=== PATIENT | male | born 1985 | race Caucasian/White ===

== ENCOUNTER 2019-01-07 21:51 | Inpatient (IN) | payer OTHER ==
[2019-01-07 21:58] VITALS: BMI 23.5
[2019-01-07] MEDS ORDERED: CYCLOBENZAPRINE HCL 10 MG TABLET (FP) PO ONE (22:24)
[2019-01-07] MEDS ORDERED: KETOROLAC TROMETHAMINE 60 MG/2 ML VIAL IM ONE (22:24)
[2019-01-07] MEDS ORDERED: predniSONE 20 MG TABLET (UD) PO ONE (22:25)
--- NOTE | 2019-01-07 23:21 | PDOC ---
Documentation entered by Shen Flowers SCRIBE, acting as scribe for Paul Oropeza MD. Paul Oropeza MD: This documentation has been prepared by the Lionel burdick Daniel, SCRIBE, under my direction and personally reviewed by me in its entirety. I confirm that the documentation accurately reflects all work , treatment, procedures, and medical decision making performed by me. History of Present Illness - General Chief Complaint: Pain, Acute Stated Complaint: L LEG PAIN Time Seen by Provider: 01/07/19 21:54 History Source: Patient Exam Limitations: No Limitations - History of Present Illness Initial Comments: 01/07/19 23:17 This is a 33-year-old male who comes in complaining of jumping off a wall and experiencing a pop in his left leg. Patient is complaining that he broke the left leg. Patient has history significant for a ACL repair in that same leg as well as a femur fracture in the past. Patient otherwise says he is healthy denies any medications and any medical history. Allergies: as per nursing notes Past Medical History: none Social history: Lives with family. Surgical history: ACL repair and femur fracture General: No fevers or chills, no weakness, no weight loss HEENT: No change in vision. No sore throat,. No ear pain CardioVascular: no chest discomfort. No shortness of breath Respiratory:No cough, or wheezing. Gastrointestinal: no nausea, vomiting, diarrhea or constipation, No rectal bleeding Genitourinary: No dysuria, hematuria, or frequency Musculoskeletal: Left leg pain and swelling as per history of present illness Neurologic: No headache, vertigo, dizziness or loss of consciousness Psychiatric: nor depression Skin: No rashes or easy bruising Endocrine: no increased thirst or abnormal weight change Allergic: no skin or latex allergy All other systems reviewed and normal Exam: General: Well-nourished well-developed individual, no acute distress HEENT: Throat: Normal, tonsils normal, no erythema or exudate Neck: Supple, no meningeal signs, no lymphadenopathy Eyes::Pupils equal reactive and round, extraocular motion intact Chest: Nontender to palpation Cardiac: S1-S2 normal, regular rate and rhythm, no murmurs rubs or gallops Respiratory: Lungs clear to auscultation bilateral Abdomen: Soft, nondistended, normal bowel sounds, there is no tenderness on palpation diffusely Extremities: There is an obvious deformity of the left lower extremity just distal to the knee. There is associated swelling. Skin is intact. Calf muscle is soft and neurovascular distal is intact. Skin: No rashes Neuro: Alert and oriented x3, CN II - XII intact, nonfocal exam with normal strength, normal sensation, normal reflexes, normal gait, Psych: Normal mood and affect. X-ray tib-fib there is a comminuted displaced fracture of the tibia and fibula Assessment and plan: This is a 33-year-old male who comes in status post jumping off a wall and breaking his left tib-fib. Patient will be admitted to an inpatient bed. Dr. mckeon was contacted from orthopnea and well consult on the patient. Patient will be admitted to the hospitalist service. Past History - Past Medical History Allergies/Adverse Reactions: Allergies Allergy/AdvReac Type Severity Reaction Status Date / Time No Known Allergies Allergy Verified 02/08/13 00:28 Home Medications: Ambulatory Orders No Home Medications 0 dose .ROUTE UTDICT 02/08/13 Cyclobenzaprine HCl [Flexeril 10 mg] 10 mg PO HS #14 tablet 01/07/19 Naproxen 500 mg PO BID #28 tablet 01/07/19 - Immunization History Td Vaccination: Yes Immunization Up to Date: Yes - Suicide/Smoking/Psychosocial Hx Smoking Status: Yes Smoking History: Current every day smoker Number of Cigarettes Smoked Daily: 20 *Physical Exam - Vital Signs Last Vital Signs Temp Pulse Resp BP Pulse Ox 98.2 F 78 14 107/63 100 01/07/19 21:54 01/07/19 21:54 01/07/19 21:54 01/07/19 21:54 01/07/19 21:54 ED Treatment Course - RADIOLOGY Radiology Studies Ordered: Category Date Time Status CHEST X-RAY PORTABLE* [RAD] Stat Radiology 01/07/19 23:16 Ordered LEG TIB/FIB-LEFT [RAD] Stat Radiology 01/07/19 21:54 Taken - Medications Given in the ED: ED Medications Discontinued Medications Generic Name Dose Route Start Last Admin Trade Name Freq PRN Reason Stop Dose Admin Cyclobenzaprine HCl 10 mg 01/07/19 22:24 01/07/19 22:38 Flexeril - PO 05/15/19 22:25 Not Given ONCE ONE Ketorolac Tromethamine 60 mg 01/07/19 22:24 01/07/19 22:39 Toradol Injection - IM 01/07/19 22:25 Not Given ONCE ONE Oxycodone/Acetaminophen 2 combo 01/07/19 21:55 01/07/19 22:05 Percocet 5/325 - PO 01/07/19 21:56 2 combo ONCE ONE Administration Prednisone 40 mg 01/07/19 22:25 01/07/19 22:39 Deltasone - PO 01/07/19 22:26 Not Given ONCE ONE *DC/Admit/Observation/Transfer Diagnosis at time of Disposition: Fracture of left tibia and fibula Qualifiers: Encounter type: initial encounter Fracture type: closed Qualified Code(s): S82.202A - Unspecified fracture of shaft of left tibia, initial encounter for closed fracture; S82.402A - Unspecified fracture of shaft of left fibula, initial encounter for closed fracture - Discharge Dispostion Condition at time of disposition: Good Decision to Admit order: Yes - Prescriptions Prescriptions: Cyclobenzaprine HCl [Flexeril 10 mg] 10 mg PO HS #14 tablet Naproxen 500 mg PO BID #28 tablet - Referrals - Patient Instructions - Post Discharge Activity
[2019-01-07] MEDS ORDERED: HYDROmorphone HCL CARPU-JECT 1 MG/1 ML DISP.SYRIN IVPUSH ONE (23:22)
[2019-01-07] MEDS: SODIUM CHLORIDE 1,000 ML IV SCH (23:32)
[2019-01-07] MEDS ORDERED: HYDROmorphone HCL CARPU-JECT 1 MG/1 ML DISP.SYRIN ONE (23:34)
--- NOTE | 2019-01-07 23:36 | HP ---
Admitting History and Physical - Admission Chief Complaint: Left knee pain and deformity History of Present Illness: 63-year-old male no significant PMH except Left knee surgery present with sever left knee pain and deformity after of jumping off a wall and experiencing a pop in his left leg. Patient has history of left ACL repair in as well as a femur fracture in the past. patient denies any head trauma, hip trauma, neck pain no LOC or fall on the ground at the time of examination, young man c/o pain left knee. History Source: Patient - Past Medical History Musculoskeletal: Yes: Other (Left knee trauma) - Past Surgical History Additional Past Surgical History: Left ACL repair and Femur condyle screw - Smoking History Smoking history: Current every day smoker Have you smoked in the past 12 months: Yes Aproximately how many cigarettes per day: 20 - Alcohol/Substance Use Hx Alcohol Use: No Home Medications - Allergies Allergies/Adverse Reactions: Allergies Allergy/AdvReac Type Severity Reaction Status Date / Time No Known Allergies Allergy Verified 02/08/13 00:28 - Home Medications Home Medications: Ambulatory Orders No Home Medications 0 dose .ROUTE UTDICT 02/08/13 Cyclobenzaprine HCl [Flexeril 10 mg] 10 mg PO HS #14 tablet 01/07/19 Naproxen 500 mg PO BID #28 tablet 01/07/19 Oxycodone HCl/Acetaminophen [Percocet 10-325 mg Tablet] 1 each PO Q6H #40 tablet MDD 4 01/09/19 Family Disease History - Family Disease History Family History: Unremarkable Review of Systems - Review of Systems Constitutional: denies: Chills, Diaphoresis, Fever Eyes: denies: Blind Spots, Blurred Vision HENT: denies: Difficult Swallowing, Ear Discharge Neck: denies: Decreased ROM, Lumps, Pain on Movement, Stiffness, Tenderness Cardiovascular: denies: Chest Pain, Edema, Palpitations, Shortness of Breath Respiratory: denies: Cough, Exercise Intolerance, Hemoptysis Gastrointestinal: denies: Abdominal Pain, Bloating, Constipation Genitourinary: denies: Burning, Discharge, Dysuria Musculoskeletal: reports: Joint Pain (Left knee). denies: Back Pain, Crepitus, Decreased ROM Neurological: denies: Change in LOC, Change in Speech, Confusion, Dizziness, Incoordination Endocrine: denies: Excessive Sweating, Flushing, Increased Hunger Hematology/Lymphatic: denies: Easily Bruised, Excessive Bleeding Pain Intensity: 10 Physical Examination Vital Signs: Vital Signs Temperature 98.2 F 01/07/19 21:54 Pulse Rate 78 01/07/19 21:54 Respiratory Rate 14 01/07/19 21:54 Blood Pressure 107/63 01/07/19 21:54 O2 Sat by Pulse Oximetry (%) 100 01/07/19 21:54 Young man in distress due to Left knee pain HEENT: mm moist, no anemia, PERRLA, EOMI NECK: No JVd No Bruit CHEST: CTA B/L CVS: S1S2 R no m/g/r ABD: Non tender Bs + EXT: Left Leg swelling angulation and tenderness at upper end of Tibia unable to move knee jint due to pain, distal pulses and sensations are intact. DRIER FEEDER: AOX3 non focal . Labs: CBC, BMP 01/08/19 00:05 01/08/19 00:05 Imaging - Results X-ray: Report Reviewed (Left knee fracture upper end of tibia and fibular with deformity, s/p tibial and femur condyle screw) Problem List - Problems (1) Fracture of left tibia and fibula Assessment/Plan: Traumatic pain control immobilization, ortho consult Code(s): S82.202A - UNSP FRACTURE OF SHAFT OF LEFT TIBIA, INIT FOR CLOS FX; S82.402A - UNSP FRACTURE OF SHAFT OF LEFT FIBULA, INIT FOR CLOS FX Qualifiers: Encounter type: initial encounter Fracture type: closed Qualified Code(s) : S82.202A - Unspecified fracture of shaft of left tibia, initial encounter for closed fracture; S82.402A - Unspecified fracture of shaft of left fibula, initial encounter for closed fracture (2) Pre-op evaluation Assessment/Plan: Patient has low Cardiopulmonary risk for this intermediate surgery, surgery can be performed if indicated without any additional w/u cardio Pulmonary risk stratification please review EKG. Code(s): Z01.818 - ENCOUNTER FOR OTHER PREPROCEDURAL EXAMINATION
[2019-01-08 00:52] LABS: BASO % 0.4 % (0-2.0); EOS % 1.2 % (0-4.5); HEMATOCRIT 37.2 % (35.4-49); HEMOGLOBIN 12.5 GM/dL (11.7-16.9); LYMPH % 14.5 % (8-40); MCH 31.3 pg (25.7-33.7); MCHC 33.6 g/dl (32.0-35.9); MEAN CELL VOLUME 93.2 fl (80-96); MEAN PLT VOLUME 8.1 fl (7.5-11.1); MONO % 6.9 % (3.8-10.2); PLATELET COUNT 268 K/MM3 (134-434); RBC 3.99 M/mm3 (4.00-5.60); RDW 12.7 % (11.9-15.9); WHITE BLOOD COUNT 14.2 K/mm3 (4.0-10.0)
[2019-01-08] MEDS: KETOROLAC TROMETHAMINE 15 MG/ML VIAL IVPUSH PRN ×4 (01:02→20:41)
[2019-01-08] MEDS ORDERED: KETOROLAC TROMETHAMINE 15 MG/ML VIAL ONE (01:03)
[2019-01-08 01:16] LABS: INR 1.13 (0.83-1.09); PROTHROMBIN TIME (PATIENT) 13.3 SEC (9.7-13.0)
[2019-01-08 01:21] LABS: ALBUMIN 4.2 g/dl (3.4-5.0); BILIRUBIN,TOTAL 0.3 mg/dL (0.2-1); CALCIUM 8.3 mg/dL (8.5-10.1); CREATININE 0.8 mg/dL (0.55-1.3); POTASSIUM 4.1 mmol/L (3.5-5.1); TOT PROT 7.1 g/dl (6.4-8.2)
[2019-01-08] MEDS ORDERED: morphine CARPU-JECT 2 MG/1 ML DISP.SYRIN IVPUSH ONE (03:05)
--- NOTE | 2019-01-08 08:35 | CON.ORTH ---
Consult - Past Medical History Musculoskeletal: Yes: Other (Left knee trauma) - Alcohol/Substance Use Hx Alcohol Use: No - Smoking History Smoking history: Current every day smoker Have you smoked in the past 12 months: Yes Aproximately how many cigarettes per day: 20 Home Medications - Allergies Allergies/Adverse Reactions: Allergies Allergy/AdvReac Type Severity Reaction Status Date / Time No Known Allergies Allergy Verified 02/08/13 00:28 - Home Medications Home Medications: Ambulatory Orders No Home Medications 0 dose .ROUTE UTDICT 02/08/13 Cyclobenzaprine HCl [Flexeril 10 mg] 10 mg PO HS #14 tablet 01/07/19 Naproxen 500 mg PO BID #28 tablet 01/07/19 Physical Exam for Ortho Vital Signs: Vital Signs Temperature 98.4 F 01/08/19 06:57 Pulse Rate 76 01/08/19 06:57 Respiratory Rate 18 01/08/19 06:57 Blood Pressure 103/71 01/08/19 06:57 O2 Sat by Pulse Oximetry (%) 98 01/08/19 06:57 Labs: CBC, BMP 01/08/19 00:05 01/08/19 00:05 INR, PTT INR 1.13 (0.83-1.09) H 01/08/19 00:05 Assessment/Plan 33-year-old male no significant PMH except Left knee surgery present with severe left knee pain and deformity after of jumping off a wall and experiencing a pop in his left leg. Patient has history of left ACL reconstruction a whilte back as well as a femur fracture in the past. patient denies any head trauma, hip trauma, neck pain no LOC. Denies any numbness or tingling. a/p left displaced tibial plateau and fibula shaft fx Risks and benefits were d/w pt in detail CT scan of left LE OR tomorrow for ORIF NPO after midnight surgical clearance d/w Dr. Banegas
[2019-01-08] MEDS ORDERED: morphine SULFATE 4 MG/ML VIAL ONE (08:49)
[2019-01-08] MEDS: morphine SULFATE 4 MG/ML VIAL IVPUSH PRN ×3 (08:53→19:49)
[2019-01-08] MEDS: oxyCODONE HCL 5 MG TABLET PO PRN ×4 (10:25→22:02)
--- NOTE | 2019-01-08 14:30 | EKG ---
Test Reason : Blood Pressure : / mmHG Vent. Rate : 079 BPM Atrial Rate : 079 BPM P-R Int : 158 ms QRS Dur : 088 ms QT Int : 386 ms P-R-T Axes : 068 067 052 degrees QTc Int : 442 ms NORMAL SINUS RHYTHM EARLY REPOLARIZATION NORMAL ECG NO PREVIOUS ECGS AVAILABLE Confirmed by DENITA LEW, NARESH ([id number]) on 01/08/2019 2:30:24 PM Referred By: MD TA Confirmed By:NARESH BARGER MD
[2019-01-09] MEDS: morphine SULFATE 4 MG/ML VIAL IVPUSH PRN ×2 (01:02→12:35)
[2019-01-09] MEDS: SODIUM CHLORIDE 1,000 ML IV SCH (02:47)
[2019-01-09] MEDS: KETOROLAC TROMETHAMINE 15 MG/ML VIAL IVPUSH PRN (03:11)
--- NOTE | 2019-01-09 09:26 | PN ---
Physical Exam: SUBJECTIVE: Patient seen and examined at bedside. Complaining staff is not responsive to his demands for pain medication. OBJECTIVE: Vital Signs Period Temp Pulse Resp BP Sys/Mc[place] Pulse Ox Last 24 Hr 97.6 F-98.8 F 57-80 16-18 117-133/58-74 96-100 GENERAL: The patient is awake, alert, and fully oriented, in no acute distress. Was sleeping but easily arousable. LUNGS: Breath sounds equal, clear to auscultation bilaterally, no wheezes, no crackles, no accessory muscle use. HEART: Regular rate and rhythm, S1, S2 ABDOMEN: Soft, nontender, nondistended LLE: in leg immobilizer; left foot is warm, well-perfused, 2+ DP pulse, can flex /extend toes, intact sensory EXTREMITIES: 2+ pulses, warm, well-perfused, no edema. NEUROLOGICAL: Cranial nerves II through XII grossly intact. Normal speech, gait not observed. Active Medications Generic Name Dose Route Start Last Admin Trade Name Freq PRN Reason Stop Dose Admin Sodium Chloride 1,000 mls @ 200 mls/hr 01/07/19 23:30 01/09/19 02:47 Normal Saline - IV 200 mls/hr ASDIR PIPPA Administration Ketorolac Tromethamine 15 mg 01/07/19 23:46 01/09/19 03:11 Toradol Injection - IVPUSH 01/12/19 23:45 15 mg Q6H PRN Administration PAIN LEVEL 6-10 Morphine Sulfate 4 mg 01/08/19 08:48 01/09/19 01:02 Morphine Sulfate IVPUSH 4 mg Q4H PRN Administration PAIN LEVEL 6-10 Oxycodone HCl 5 mg 01/08/19 08:49 01/08/19 22:02 Roxicodone - PO 5 mg Q3H PRN Administration PAIN LEVEL 1-5 ASSESSMENT/PLAN Left tibia/fibula fracture --pain management per surgery --plan is for OR tomorrow with Dr. Banegas --NPO after midnight Dispo: continues to require inpatient care. Full code. Visit type - Emergency Visit Emergency Visit: Yes ED Registration Date: 01/07/19 Care time: The patient presented to the Emergency Department on the above date and was hospitalized for further evaluation of their emergent condition. - New Patient This patient is new to me today: Yes Date on this admission: 01/09/19 - Critical Care Critical Care patient: No
[2019-01-09] MEDS ORDERED: ACETAMINOPHEN 325 MG TABLET (FP) PO PRN ×2 (10:05→17:46)
[2019-01-09] MEDS: oxyCODONE HCL 5 MG TABLET PO PRN (10:08)
[2019-01-09] MEDS ORDERED: HYDROmorphone HCL 0.5 MG/0.5 ML SYRINGE ONE (11:55)
--- NOTE | 2019-01-09 12:18 | PN ---
Physical Exam: SUBJECTIVE: Patient seen and examined at bedside. Going to OR later today. OBJECTIVE: Vital Signs Period Temp Pulse Resp BP Sys/Mcgee Pulse Ox Last 24 Hr 97.6 F-98.8 F 57-80 16-18 118-133/58-74 97-100 GENERAL: The patient is awake, alert, and fully oriented, in no acute distress. Was sleeping but easily arousable. LUNGS: Breath sounds equal, clear to auscultation bilaterally, no wheezes, no crackles, no accessory muscle use. HEART: Regular rate and rhythm, S1, S2 ABDOMEN: Soft, nontender, nondistended LLE: in leg immobilizer; left foot is warm, well-perfused, 2+ DP pulse, can flex /extend toes, intact sensory EXTREMITIES: 2+ pulses, warm, well-perfused, no edema. NEUROLOGICAL: Cranial nerves II through XII grossly intact. Normal speech, gait not observed. Active Medications Generic Name Dose Route Start Last Admin Trade Name Freq PRN Reason Stop Dose Admin Acetaminophen 650 mg 01/09/19 10:05 01/09/19 10:12 Tylenol - PO 650 mg Q6H PRN Administration PAIN LEVEL 1-5 Sodium Chloride 1,000 mls @ 200 mls/hr 01/07/19 23:30 01/09/19 02:47 Normal Saline - IV 200 mls/hr ASDIR PIPPA Administration Ketorolac Tromethamine 15 mg 01/07/19 23:46 01/09/19 03:11 Toradol Injection - IVPUSH 01/12/19 23:45 15 mg Q6H PRN Administration PAIN LEVEL 6-10 Morphine Sulfate 4 mg 01/08/19 08:48 01/09/19 01:02 Morphine Sulfate IVPUSH 4 mg Q4H PRN Administration PAIN LEVEL 6-10 Oxycodone HCl 5 mg 01/08/19 08:49 01/09/19 10:08 Roxicodone - PO 5 mg Q3H PRN Administration PAIN LEVEL 1-5 ASSESSMENT/PLAN: Left tibia/fibula fracture --pain management per surgery --plan is for OR today with Dr. Banegas --NPO Dispo: continues to require inpatient care. Full code. Visit type - Emergency Visit Emergency Visit: Yes ED Registration Date: 01/07/19 Care time: The patient presented to the Emergency Department on the above date and was hospitalized for further evaluation of their emergent condition. - New Patient This patient is new to me today: No - Critical Care Critical Care patient: No
--- NOTE | 2019-01-09 12:18 | PN ---
Physical Exam: SUBJECTIVE: Patient seen and examined OBJECTIVE: Vital Signs Period Temp Pulse Resp BP Sys/Mcgee Pulse Ox Last 24 Hr 97.6 F-98.8 F 57-80 16-18 118-133/58-74 97-100 GENERAL: The patient is awake, alert, and fully oriented, in no acute distress. HEAD: Normal with no signs of trauma. EYES: PERRL, extraocular movements intact, sclera anicteric, conjunctiva clear. No ptosis. ENT: Ears normal, nares patent, oropharynx clear without exudates, moist mucous membranes. NECK: Trachea midline, full range of motion, supple. LUNGS: Breath sounds equal, clear to auscultation bilaterally, no wheezes, no crackles, no accessory muscle use. HEART: Regular rate and rhythm, S1, S2 without murmur, rub or gallop. ABDOMEN: Soft, nontender, nondistended, normoactive bowel sounds, no guarding, no rebound, no hepatosplenomegaly, no masses. EXTREMITIES: 2+ pulses, warm, well-perfused, no edema. NEUROLOGICAL: Cranial nerves II through XII grossly intact. Normal speech, gait not observed. PSYCH: Normal mood, normal affect. SKIN: Warm, dry, normal turgor, no rashes or lesions noted Active Medications Generic Name Dose Route Start Last Admin Trade Name Freq PRN Reason Stop Dose Admin Acetaminophen 650 mg 01/09/19 10:05 01/09/19 10:12 Tylenol - PO 650 mg Q6H PRN Administration PAIN LEVEL 1-5 Sodium Chloride 1,000 mls @ 200 mls/hr 01/07/19 23:30 01/09/19 02:47 Normal Saline - IV 200 mls/hr ASDIR PIPPA Administration Ketorolac Tromethamine 15 mg 01/07/19 23:46 01/09/19 03:11 Toradol Injection - IVPUSH 01/12/19 23:45 15 mg Q6H PRN Administration PAIN LEVEL 6-10 Morphine Sulfate 4 mg 01/08/19 08:48 01/09/19 01:02 Morphine Sulfate IVPUSH 4 mg Q4H PRN Administration PAIN LEVEL 6-10 Oxycodone HCl 5 mg 01/08/19 08:49 01/09/19 10:08 Roxicodone - PO 5 mg Q3H PRN Administration PAIN LEVEL 1-5 ASSESSMENT/PLAN:
[2019-01-09] MEDS ORDERED: ONDANSETRON 4 MG/2 ML VIAL IVPUSH PRN (13:28)
[2019-01-09] MEDS ORDERED: HYDROmorphone *PCA* 10MG/50ML DISP.SYRIN PCA SCH (13:30)
[2019-01-09] MEDS ORDERED: fentaNYL CITRATE 250 MCG/5 ML VIAL ONE (14:53)
[2019-01-09] MEDS ORDERED: MIDAZOLAM HCL 2 MG/2 ML SINGLE DOSE VIAL ONE ×3 (14:53)
[2019-01-09] MEDS ORDERED: PROPOFOL 20 ML ONE ×3 (15:30)
[2019-01-09] MEDS ORDERED: ONDANSETRON 4 MG/2 ML VIAL ONE (16:28)
[2019-01-09] MEDS ORDERED: DEXAMETHASONE SOD PHOSPHATE 4 MG/1 ML VIAL ONE (16:28)
[2019-01-09] MEDS ORDERED: KETOROLAC TROMETHAMINE 30 MG/1 ML VIAL ONE (16:28)
--- NOTE | 2019-01-09 17:10 | OP ---
Operative Note - Note: Operative Date: 01/09/19 (candis) Pre-Operative Diagnosis: left tibial plateau fx Operation: left tibial plateau and shaft ORIF Post-Operative Diagnosis: Same as Pre-op Surgeon: Chava Banegas Utility Agent: Edmundo Ly Anesthesiologist/RESIDENTIAL CARPENTER: Rich Noyola Anesthesia: General, Spinal Estimated Blood Loss (mls): 50 Operative Report Dictated: Yes
[2019-01-09] MEDS ORDERED: PROMETHAZINE HCL 25 MG/1 ML VIAL IVPUSH PRN (17:26)
[2019-01-09] MEDS ORDERED: LACTATED RINGERS SOLUTION 1,000 ML IV SCH (17:30)
[2019-01-09] MEDS ORDERED: HYDROmorphone *PCA* 6MG/30ML DISP.SYRIN PCA SCH (17:45)
[2019-01-09] MEDS ORDERED: KETOROLAC TROMETHAMINE 15 MG/ML VIAL IVPUSH PRN (17:46)
[2019-01-09] MEDS ORDERED: SODIUM CHLORIDE 1,000 ML IV SCH (17:46)
[2019-01-10 06:47] VITALS: TEMP 98.4
[2019-01-10 10:06] VITALS: BP 122/72; PULSE 74
--- NOTE | 2019-01-10 11:22 | PN ---
Physical Exam: Patient was discharged by the surgical service. He was not seen and examined today by the hospitalist service. Visit type - Emergency Visit Emergency Visit: Yes ED Registration Date: 01/07/19 Care time: The patient presented to the Emergency Department on the above date and was hospitalized for further evaluation of their emergent condition. - New Patient This patient is new to me today: No - Critical Care Critical Care patient: No - Discharge Referral Referred to [facility] Med [facility] No
--- NOTE | 2019-01-10 11:24 | OP ---
DATE OF OPERATION: 01/09/2019 PREOPERATIVE DIAGNOSES: 1. Left tibial plateau fracture. 2. Left proximal tibia-fibula fracture, tibia-fibular shaft fracture. PROCEDURE: Open reduction internal fixation of left tibial plateau fracture and open reduction internal fixation left proximal tibia-fibular shaft fracture. SURGICAL ATTENDING: Ángel Banegas MD CUFF SETTER LOCKSTITCH: LACI Peck ANESTHESIA: Spinal and IV sedation. CLOSURE: [place] lateral tibial plate with appropriate screws proximally and distally, 2-0 subcutaneous, rich for skin. ESTIMATED BLOOD LOSS: Approximately 50 mL. COMPLICATIONS: None. To recovery room in stable condition. INDICATION FOR OPERATIVE PROCEDURE: Patient is a 33-year-old male status post fall off a wall 2 days ago who was admitted to the [facility] with a diagnosis of a split tibial plateau fracture as well as a proximal tibia/fibula shaft fracture. This was complicated by the fact the patient already previously had a left anterior cruciate ligament reconstruction with a tibial screw located just at the level of the fracture. Patient was found to be neurovascularly intact on the floor. Risks, benefits, and alternatives had been gone over with the patient and with both parents. Patient told possible difficulty in healing of the complex fracture of this with skin issues, neurovascular issues, and the potential for further surgery needed, i.e., bone grafting, etc. and the long time it takes for this fracture to heal. Patient and family asked the appropriate questions, and we sat for a while describing all the potential complications and postoperative course for the patient, and the patient then acquiesced and wanted to go forward with the procedure, which we are doing today. DESCRIPTION OF OPERATIVE PROCEDURE: Patient was taken to the operating room on January 09, 2019. Spinal anesthesia was performed by the anesthesiologist along with IV sedation. IV Kefzol 2 g was administered prophylactically prior to the case. A well-padded pneumatic tourniquet was placed on the left proximal thigh in case it was needed. The left lower extremity was prepped and draped in the usual sterile fashion. First, we wanted to address the split in the articular surface from medial to lateral. A large tenaculum bone reduction clamp was placed on the tibia from medial to laterally but more on the anterior cortex anterior to the fibula to ensure no entrapment of the perineal nerve. A small stab incision was made both medial and laterally so that the pins from the reduction clamp were fastened snugly down on the bone. Confirmation of excellent position of the clamp with reduction of the split was confirmed in the AP and lateral plane by use of fluoroscopy. Two threaded wires were placed on the medial side of the leg, 1 going across the knee and 1 going from anteromedial to distal posterior to capture the fracture and hold the fracture in place while we performed the rest of the operation. With the pins in place and the reduction clamp in place, we then were able to manipulate the tibia-fibula fracture until an anatomical reduction was obtained in that fracture as well. At this time, a 4- to 5-cm curved longitudinal incision over the anterolateral proximal tibia anterior to the fibula was performed. Hemostasis was achieved using the Bovie cautery. The fascia was elevated proximally and sharply dissected off the bone facilitated by a periosteal elevator. A long periosteal elevator that comes with the John plate system was passed down the lateral side of the tibia past the fracture site distally. A 6-hole proximal lateral John tibial plate with the outrigger attached was placed down the fracture along the lateral side of the fibula. Fluoroscopy was used to ascertain that the plate was of sufficient length with enough holes distal to the fracture to fixate the fracture distally. I also ensured that the plate was at the appropriate level so that the proximal screws would be just beneath the articular surface and that the plate lie flush with the bone. This was performed when we attained this view. One proximal and 1 distal K-wire was placed through the plate both proximally and distally holding the plate in the appropriate position. The targeting device was used to put 1 screw of a nonlocking variety bicortically just below the fracture in the "number 2 hole." This used a nonlocking variety screw in order to pull the plate to be flush with the bone. Proximally then the outrigger was used to place numerous screws from lateral to medially grabbing the lateral side of the bone. The 1st screw that was placed was initially placed in a lag fashion using a cancellous screw in order to compress the split of the proximal tibia from mediolaterally together. Then once good compression was obtained in that regard, multiple other screws were placed using locking screw variety screws in order to further fixate the proximal fracture. Then the lag screw was removed and replaced with another locking screw as well to aid in fixation. Through 3 stab incisions distally multiple screws were placed below the fracture in the tibial shaft fixating the tibial plate to the distal tibial shaft. At least 5 screws were placed there achieving bicortical bites. The initial screw that was a nonlocking variety screw was removed and replaced with a locking screw for adjuvant fixation. A "homerun screw" was then placed on the plate from the lateral side to just beneath the articular surface on the medial side achieving excellent fixation in that regard as well. The outriggers were all removed. X-ray in the AP and lateral planes confirmed excellent fixation and placement of the screws and excellent anatomical reduction of both the tibial plateau fracture and the tibial shaft fracture. In fact, the fibular shaft also lined up anatomically as well. All incisions were irrigated with copious amounts of irrigation. The fascia proximally was left open, which was tacked to each other but was left open to allow any drainage. The subcutaneous was closed with 2-0 Vicryl and rich for skin. The stab incisions all distally were closed with rich as well. There was a large hemarthrosis due to the intra-articular nature of the fracture. An 18-gauge needle was placed into the knee joint and was used to evacuate 80 mL of blood from the intra-articular aspect of the knee. Post fixation, the knee was soft, and exam revealed a negative anterior/posterior drawer, negative instability to varus and valgus stress, stable at 30 and 90 degrees. The knee was able to be taken through a range of motion and found to have good stability throughout range of motion. A sterile Xeroform dressing, fluffs, and a lightly placed Hola bandage were placed on the left lower extremity. The tourniquet was not used at all during the case. Estimated blood loss was approximately 50 mL. Patient was awakened from anesthesia and transferred to the recovery in stable condition. We placed a knee immobilizer with ice pack in to aid in stability as well as to aid in ice and elevation to help with pain management. The patient propped his ankle and will have strict nonweightbearing elevation of the leg. Patient also instructed to stop smoking. His father was made aware of this and has Nicorette patches and gum for him, which he has tried to use in the past but now will try with increased vigor to help his son kick this smoking habit. Family is aware that the smoking will significantly decrease the speed of his healing. No complications. ÁNGEL BANEGAS M.D. [id number]
== END 2019-01-10 10:30 | disposition home or self-care (01) | DRG 313 ==
LOC: FER 21:51 → FM/S 23:21 → UNDOADMIN 01-08 01:02
PROVIDERS: ADMIT Internal Medicine; ATTEND Nurse Practitioner Acute Care
PROC: 0QSK04Z Reposition Left Fibula with Internal Fixation Device, Open Approach (ICD-10-PCS; 2019-01-09)
PROC: 0QSH04Z Reposition Left Tibia with Internal Fixation Device, Open Approach (ICD-10-PCS; principal; 2019-01-09 16:07)
DX: S82.142A Displaced bicondylar fracture of left tibia, initial encounter for closed fracture (principal); S82.492A Other fracture of shaft of left fibula, initial encounter for closed fracture; X58.XXXA Exposure to other specified factors, initial encounter; Y93.39 Activity, other involving climbing, rappelling and jumping off; Y92.89 Other specified places as the place of occurrence of the external cause; Y99.9 Unspecified external cause status; F17.210 Nicotine dependence, cigarettes, uncomplicated
CPT/HCPCS: 36415; 71045-TC-FY; 73590-TC-LT-FY; 73700-TC-RT; 80053; 85025; 85610; 86850; 86900; 86901; 93005; 94760; 97116-GP; 97161-GP; 99284-25; J1170; J7030

== ENCOUNTER 2019-04-01 05:11 | Day surgery (SDC) | payer OTHER ==
[2019-03-31 14:23] VITALS: BMI 21.2
--- NOTE | 2019-04-01 09:30 | HP ---
[facility] - Chief Complaint Chief Complaint: left tibia delayed union - Past Medical History Allergies/Adverse Reactions: Allergies Allergy/AdvReac Type Severity Reaction Status Date / Time No Known Allergies Allergy Verified 03/31/19 14:14 Musculoskeletal: Yes: Other (Left knee trauma) - Current Medications Current Medications: Home Medications Medication Instructions Recorded NK [No Known Home Medication] 03/31/19 [facility] Physical Exam - Physical Examination General Appearance: Well Nourished, Well Developed, Alert & Oriented x3 ENT: Clear Lung: Normal air movement Heart: Regular rate & rhythm Extremities: Other (left knee/LE- well healed surgical scar, mild ttp, good rom , nvi, xrays show delayed healing of fx site with good position of hardware) Neurological: Intact, Alert, Oriented [facility]ellite Impression/Plan - Impression/Plan Impression: left tibia delayed union s/p ORIF Operative Procedure: left tibia bone grafting, iliac crest harvest Date to be Performed: 04/01/19
[2019-04-01] MEDS ORDERED: BUPIVACAINE HCL/PF 0.5% (5MG/ML) 10 ML VIAL ONE (10:45)
[2019-04-01] MEDS ORDERED: LIDOCAINE HCL 1%, 10 MG/ML (20ML VIAL) ONE (10:45)
[2019-04-01] MEDS ORDERED: HEPARIN NA (PORCINE) 5,000 UNITS/ML 1ML VIAL ONE ×2 (10:47→10:51)
[2019-04-01] MEDS ORDERED: MIDAZOLAM HCL 2 MG/2 ML SINGLE DOSE VIAL ONE (10:57)
[2019-04-01] MEDS ORDERED: ceFAZolin SODIUM 1 GM VIAL IVPB ONE (11:10)
[2019-04-01] MEDS ORDERED: ceFAZolin SODIUM 1 GM VIAL ONE (11:12)
[2019-04-01] MEDS ORDERED: PROPOFOL 20 ML ONE (11:14)
[2019-04-01] MEDS ORDERED: DEXAMETHASONE SOD PHOSPHATE 4 MG/1 ML VIAL ONE (11:21)
[2019-04-01] MEDS ORDERED: oxyCODONE HCL 5 MG TABLET PO PRN (11:25)
[2019-04-01] MEDS ORDERED: ONDANSETRON 4 MG/2 ML VIAL IVPUSH PRN (11:25)
[2019-04-01] MEDS ORDERED: LACTATED RINGERS SOLUTION 1,000 ML IV SCH (11:30)
--- NOTE | 2019-04-01 11:52 | OP ---
Operative Note - Note: Operative Date: 04/01/19 ([facility]) Pre-Operative Diagnosis: left proximal tibia delayed union s/p ORIF Operation: left proximal tibia bone grafting, iliac crest bone graft harvest Post-Operative Diagnosis: Same as Pre-op Surgeon: Chava Banegas Anesthesia: General, Local Estimated Blood Loss (mls): 20 Operative Report Dictated: Yes
[2019-04-01] MEDS ORDERED: MEPERIDINE HCL 25 MG/ML VIAL ONE (12:00)
[2019-04-01] MEDS ORDERED: MEPERIDINE HCL CARPU-JECT 25 MG/1 ML DISP.SYRIN IVPUSH ONE (12:05)
[2019-04-01] MEDS ORDERED: oxyCODONE HCL 5 MG TABLET ONE (12:45)
--- NOTE | 2019-04-01 13:22 | OP ---
DATE OF OPERATION: 04/01/2019 PREOPERATIVE DIAGNOSIS: Delayed union, left proximal tibia fracture. POSTOPERATIVE DIAGNOSIS: Delayed union, left proximal tibia fracture. PROCEDURE: Iliac crest aspiration and open bone grafting of the left proximal tibia. SURGICAL ATTENDING: Chava Banegas MD ANESTHESIA: LMA. CLOSURE: 2-0 Vicryl subcutaneous, and rich for skin. ESTIMATED BLOOD LOSS: Negligible. COMPLICATIONS: None. CONDITION: To recovery in stable condition. DESCRIPTION OF OPERATIVE PROCEDURE: Patient was taken to the operating room on April 01, 2019. General anesthesia with LMA was administered by the anesthesiologist. IV Kefzol was administered prophylactically prior to the case. First, the iliac crest on the left side was prepped and draped in the usual sterile fashion. An aspiration needle that was pre-heparinized was inserted between the 2 tables of the iliac crest a few centimeters up from the ASIS. Then, 60 mL of blood from this region was aspirated through 2 different heparinized syringes, and through multiple places in the iliac crest, the needle was moved around throughout the crest. The needle was removed and the area was held with pressure. Then, a Band-Aid was applied. The fluid that was aspirated was passed off the field into a sterile container where it was centrifuged to concentrate the pluripotent cells in the iliac crest. Next, the left proximal tibial area was prepped and draped in the usual sterile fashion. The site of the transverse proximal tibial fracture was isolated by use of fluoroscopy. A small 2-3-cm incision over the fracture was incised. Hemostasis was achieved with Bovie cautery. Sharp dissection was carried down to the level of the fracture. A periosteal elevator was used to expose the fracture line on the medial side of the knee. Cancellous bone chips were mixed together with the iliac crest aspirate and then packed into the medial side of the fracture subperitoneally. Proper placement again was confirmed by use of fluoroscopy. The fascia was then covered and closed with 2-0 Vicryl and rich for skin. A sterile pressure dressing was applied. Patient was awakened from anesthesia and transferred to recovery in stable condition. No complications. Estimated blood loss negligible. Sierra [id number]
[2019-04-01 14:02] VITALS: BP 121/62; PULSE 64; TEMP 98
[2019-04-01] MEDS ORDERED: oxyCODONE HCL 5 MG TABLET PO ONE (14:45)
== END 2019-04-01 14:05 | disposition home or self-care (01) ==
LOC: JASU-SURG 05:11
PROVIDERS: ATTEND Orthopaedic Surgery
PROC: 0QUH07Z Supplement Left Tibia with Autologous Tissue Substitute, Open Approach (ICD-10-PCS; principal; 2019-04-01 11:30)
DX: S82.102 Unspecified fracture of upper end of left tibia (principal); Y99.9 Unspecified external cause status
CPT/HCPCS: 36415; 76000-TC-FY; 80053; 81003; 85025; 85610; 85730; 94760; J1644